=== PATIENT | male | born 1975 | race African-American/Black ===

== ENCOUNTER 2017-02-15 07:48 | Day surgery (SDC) | payer OTHER ==
[2017-02-15] VITALS (7 sets, daily range): BP systolic 124–139; BP diastolic 84–94; PULSE 56–82; RESP 10–18
[~2017-02-15] VITALS: Ht 182.9 cm; Wt 101.4 kg
[~2017-02-15 07:48] MED LIST: CEFAZOLIN 1 GM INJ ONE; GLYCOPYRROLATE 0.4 MG INJ ONE; LIDOCAINE 2% (SDV) 5 ML INJ ONE; NEOSTIGMINE 3 MG/3 ML SYRINGE ONE; ROCURONIUM 50 MG INJ ONE
[2017-02-15] MEDS ORDERED: BUPR300T36 PO (08:31)
[2017-02-15] MEDS ORDERED: CHOL100062 PO (08:31)
--- NOTE | 2017-02-15 10:10 | HPN ---
Date/Time of Note Date/Time of Note DATE: 02/15/17 TIME: 10:10 Interval H&P Admission Note Pt. seen H&P reviewed: No system changes GERARDO DUMONT MD Feb 15, 2017 10:10
[2017-02-15] MEDS ORDERED: MIDAZOLAM 1 MG/ML 2 ML INJ ONE (10:27)
[2017-02-15] MEDS ORDERED: ROPIVACAINE 0.5 % 30 ML VIAL ONE ×2 (10:29→13:25)
[2017-02-15] MEDS ORDERED: OXYCODONE/ACETAMINOPHEN (5/325) TAB PO PRN ×3 (10:30→14:00)
[2017-02-15] MEDS ORDERED: morphine 2 MG INJ IV PRN (10:30)
[2017-02-15] MEDS ORDERED: DEXAMETHASONE 4 MG/ML 1 ML INJ ONE (11:28)
[2017-02-15] MEDS ORDERED: PROPOFOL 40 ML ONE (11:28)
[2017-02-15] MEDS ORDERED: LABETALOL HCL 20MG INJ ONE (11:29)
[2017-02-15] MEDS ORDERED: POLYMYXIN/BACITRACIN 1L IRRIG ONE (11:38)
[2017-02-15] MEDS ORDERED: NEOMYC/POLYMYX/BACIT 3.5GM OPH OINT ONE (13:29)
[2017-02-15] MEDS ORDERED: NEOMYC/POLYMYX/BACIT 30 GM OINT ONE (13:29)
[2017-02-15] MEDS ORDERED: ONDANSETRON 4 MG INJ ONE (13:41)
--- NOTE | 2017-02-15 13:48 | RADRPT ---
PROCEDURE: Intraoperative imaging of the right ankle with fluoroscopy. CLINICAL INDICATION: Right ankle pain. Intraoperative. TECHNIQUE: 18 images of the right ankle were obtained in the operating room with an image intensif ier. No radiologist was in attendance. Fluoroscopy time is 70 seconds. COMPARISON: No prior study is available for comparison. FINDINGS: Surgical instruments are noted overlying the right ankle. Images demonstrate placement of a lateral plate and multiple screws transfixing the distal fibula. T here are 2 fixation devices are also noted transfixing the distal tibia to distal fibula. IMPRESSION: 1. Intraoperative imaging of the right ankle. RPTAT: QQ .Kevin Segovia MD, MD Date Time Electronically viewed and signed by .Kevin Segovia MD, on 02/15/2017 13:48 .R/
--- NOTE | 2017-02-15 13:59 | OPR ---
Date/Time of Note Date/Time of Note DATE: 02/15/17 TIME: 13:59 Operative Report Procedure Date: Feb 15, 2017 Preoperative Diagnosis Right ankle distal fibular fracture, posterior malleolus fracture and syndesmotic disruption. Postoperative Diagnosis Right ankle distal fibular and posterior malleolus fracture and syndesmotic disruption. Right ankle medial talar dome osteochondral lesion measuring 2 x 2 mm. Right ankle joint loose body measuring ~1 cm. Operation Performed Right ankle arthroscopy with loose body removal Right ankle arthroscopy with extensive debridement Right ankle open reduction internal fixation of lateral malleolus ankle fracture in the setting of a bimalleolar ankle fracture which included the posterior malleolus Right ankle open reduction internal fixation of syndesmosis Surgeon Nilesh Dumont MD patient services assistant: WOOD HERRERA Anesthesia Type: general, other (Popliteal regional block with local saphenous block) Anesthesiologist: LUZ LOTT Tourniquet Time: 75 min at 250 mm Hg Estimated Blood Loss: 10 - 50 ml's Transfusion Required: no Specimen: none Grafts/Implants 1 Arthrex distal fibular locking plate with one titanium Arthrex tight rope Complications: no Pt Condition Post Procedure: stable Disposition: PACU Indications Patient is a 42-year-old male who sustained a right ankle lateral and posterior malleolar ankle fracture with syndesmotic disruption after an ankle fracture dislocation approximately 3 weeks ago. Given the amount of disruption and injury in this placement to the ankle fracture and its fragments patient was indicated for surgical fixation. Operative\Procedure Findings Risk Note: Patient was explained the risks and benefits of surgery and the patient's [place] language including not limited to infection, bleeding, injury to blood vessels, nerves, ligaments or tendons. Risks of anesthesia, deep vein thrombosis and need for reduce future surgery. Patient acknowledged these risk by signing the surgical consent form. Procedure Description The patient was met in the preoperative holding area, marked with the correct operative extremity confirmed with both patient and consent. The patient was then brought back in the operative theater, placed supine on operative table, given preoperative antibiotics and preoperative regional block anesthesia. The patient was then placed in the arthroscopic thigh zendejas with all bony prominences well padded with a nonsterile tourniquet placed on the operative extremity. The patient was then prepped and draped in the normal sterile fashion. All parties in the room did a timeout and everyone agreed it was the correct patient, and extremity and procedure. The superficial peroneal nerve had been marked out prior to distraction, followed by initial distraction was placed across the joint and and using extreme caution to avoid any injury to the neurovascular structures, the anteromedial, anterolateral, and posterolateral portals were created in the standard fashion. The arthroscope was brought into the ankle and a 21-point exam was performed showing extensive hemorrhagic scar tissue and synovitis in the ankle with extensive scar tissue in both the medial, lateral, posterior and anterior gutters. Also noted was a 1.05 cm of loose body that was found in the posterior lateral aspect of the ankle, which was removed during the case. The syndesmosis was extensively debrided. Also noted was the deep deltoid which was partially ruptured and visible in the medial gutter. After thorough debridement of the anterior medial, lateral, posterior and anterior gutters. There was a posterior malleolar fracture with articular disruption seen and the fracture at this point was reduced with a probe and a displaced articular fracture fragments was reduced and the comminution removed under arthroscopic visualization. Approximately 2 x 2 millimeter osteochondral lesion of the anterior medial talar dome with bare bone was noted during exam however it was off the bearing portion of the articular surface after this was done, the ankle was irrigated thoroughly with normal saline and the arthroscopes were removed. At this point, the thigh zendejas was removed and the patient was well padded under both extremities and patient was then reprepped and draped, and all gloves and instruments were changed. Attention was then turned initially to the distal fibular fracture. An incision was made over the the fibula. The incision was taken down to the fibula with care taken to avoid injury to the neurovascular structures. The fracture was identified and reduced and fixated with a interfragmentary lag screw followed by a distal fibular plate and fibula was reduced and x-rayed to show that there was fibular length and alignment and rotation had been re- achieved. Once this was shown, the wound was irrigated thoroughly. A manual external rotation stress xray was performed showing syndesmosis widening. A syndesmotic tightrope was then placed across the joint to reduce the syndesmosis. Talar tilt stress xray was performed showing no eversion stress opening medially showing that it was likely only deep but not superficial deltoid rupture A saphenous nerve block was then done with 20 cc of 0.5% ropivacaine All wounds were thoroughly irrigated and closed with initially 2-0 Vicryl, followed by 3-0 Monocryl followed by 3-0 nylon in a vertical mattress fashion. All wounds were dressed with Xeroform, antibiotic ointment, 4 x 4s, 5 ABDs were placed and the patient was placed in a well-padded short leg splint. Tourniquet had been brought down prior to this and hemostasis had been achieved prior to the wound closure. The wounds were irrigated thoroughly prior to closure as well. All sponge and needle counts were correct. NILESH DUMONT MD Feb 15, 2017 13:59
--- NOTE | 2017-02-15 13:59 | SIPON ---
Date/Time of Note Date/Time of Note DATE: 02/15/17 TIME: 13:57 Operative Report Preoperative Diagnosis Right ankle distal fibular fracture and syndesmotic disruption. Postoperative Diagnosis Right ankle distal fibular fracture and syndesmotic disruption. Right ankle medial talar dome osteochondral lesion measuring 2 x 2 mm. A loose body measuring 1 cm. Operation/Procedure Performed Right ankle arthroscopy with loose body removal Right ankle arthroscopy with extensive debridement Right ankle open reduction internal fixation of lateral malleolus ankle fracture Right ankle open reduction internal fixation of syndesmosis Surgeon Nilesh Dumont MD news assistant TOMASZ Yan Anesthesia: general, other (Popliteal regional block with local saphenous block ) Estimated blood loss: 10 - 50 ml's Transfusion Required none Specimen None Grafts/Implants 1 Arthrex distal fibular locking plate with one titanium Arthrex tight rope Complications none NILESH DUMONT MD Feb 15, 2017 13:59
[2017-02-15] MEDS ORDERED: LABETALOL HCL 20MG INJ IV PRN (14:00)
[2017-02-15] MEDS ORDERED: ONDANSETRON 4 MG INJ IV PRN (14:00)
[2017-02-15] MEDS ORDERED: HYDROmorphONE (0.2 MG/ML) 10ML SYG IV PRN ×3 (14:00)
[2017-02-15] MEDS ORDERED: hydrALAzine 20 MG INJ IV PRN (14:00)
[2017-02-15] MEDS ORDERED: MEPERIDINE 25 MG INJ IV PRN (14:00)
[2017-02-15] MEDS ORDERED: KETOROLAC 30 MG INJ IV PRN (14:00)
[2017-02-15] MEDS ORDERED: DIPHENHYDRAMINE 50 MG INJ IV PRN (14:00)
[2017-02-15] MEDS ORDERED: FENTAnyl 50 MCG/ML VIAL IV PRN ×3 (14:00)
== END 2017-02-15 16:10 | disposition home or self-care (01) ==
LOC: SDS 07:48
PROVIDERS: ATTEND Orthopaedic Surgery
DX: S82.61XA Displaced fracture of lateral malleolus of right fibula, initial encounter for closed fracture (principal); M93.271 Osteochondritis dissecans, right ankle and joints of right foot; X58.XXXA Exposure to other specified factors, initial encounter; Y92.89 Other specified places as the place of occurrence of the external cause; M24.071 Loose body in right ankle; F17.200 Nicotine dependence, unspecified, uncomplicated; E66.9 Obesity, unspecified; Z68.30 Body mass index [BMI] 30.0-30.9, adult
CPT/HCPCS: 27792; 29894; 73610; J0690; J1100; J1170; J2250; J2405; J2710; J2795; J3010; Z7512; Z7610

== ENCOUNTER 2017-02-25 13:05 | Emergency (ER) | payer OTHER ==
[~2017-02-25] VITALS: Ht 182.9 cm; Wt 101.5 kg
[~2017-02-25 13:05] MED LIST changes: +BUPR300T36 PO; -CEFAZOLIN 1 GM INJ ONE; +CHOL100062 PO; -GLYCOPYRROLATE 0.4 MG INJ ONE; -LIDOCAINE 2% (SDV) 5 ML INJ ONE; -NEOSTIGMINE 3 MG/3 ML SYRINGE ONE; -ROCURONIUM 50 MG INJ ONE
[2017-02-25 13:08] VITALS: Ht 182.9 cm; Wt 101.5 kg
--- NOTE | 2017-02-25 13:37 | ERD ---
ER Documentation Chief Complaint Date/Time DATE: 02/25/17 TIME: 13:30 Chief Complaint R. leg pain x yesterday post r. leg surgery x 1 week ago HPI 42-year-old male who presents emergency department for right calf pain. Was sent here by his orthosis surgeon, Dr. Nilesh Scott, who was requesting doppler- study/venous lab. Headache, dizziness, blurred vision, neck pain, throat pain, difficulty swallowing, shoulder pain, chest pain, shortness of breath, difficulty breathing when lying flat, coughing, abdominal pain, nausea, vomiting, constipation, diarrhea, urinary symptoms, fever, chills. No known drug allergies. No past medical history. Surgery: Maleolar surgery. Social: Not working at this time. Smokes vape cigarettes. His alcoholic beverages. Denies use of illegal drugs. ROS All systems reviewed and are negative except as per history of present illness. Medications Home Meds Reported Medications Cholecalciferol* (Vitamin D3*) 1,000 Unit Tablet, 1000 UNIT PO DAILY, TAB 02/15/17 Bupropion Hcl* (Bupropion XL*) 300 Mg Tab.sr.24h, 300 MG PO DAILY, TAB.SA 02/15/17 Allergies Allergies: Coded Allergies: No Known Allergy (Unverified , 02/25/17) PMhx/Soc History of Surgery: Yes (r LEG ) Anesthesia Reaction: No Hx Neurological Disorder: No Hx Respiratory Disorders: No Hx Cardiac Disorders: No Hx Psychiatric Problems: No Hx Miscellaneous Medical Probl: No Hx Alcohol Use: Yes (SOCIALY) Hx Substance Use: No Hx Tobacco Use: No Physical Exam Vitals Vital Signs Date Time Temp Pulse Resp B/P Pulse Ox O2 Delivery O2 Flow Rate FiO2 02/25/17 13:08 98.2 87 18 140/91 98 Physical Exam Const: [] Head: Atraumatic Eyes: Normal Conjunctiva ENT: Normal External Ears, Nose and Mouth. Neck: Full range of motion..~ No meningismus. Resp: Clear to auscultation bilaterally Cardio: Regular rate and rhythm, no murmurs Abd: Soft, non tender, non distended. Normal bowel sounds Skin: No petechiae or rashes Back: No midline or flank tenderness Ext: No cyanosis, or edema. Right lower extremity has a posterior splint. Unwrapped. No discoloration to calf area. Mild tenderness to palpation to calf area. Circulation and sensation is intact to right toes. Circulation and sensation is intact to right lower extremity. Bilateral hips are stable and unremarkable. Left lower extremities unremarkable. No neurovascular deficits. Neur: Awake and alert. No neurological deficits. Psych: Normal Mood and Affect Procedures/MDM 42-year-old male who presents emergency department for right calf pain. Was sent here by his orthosis surgeon, Dr. Nilesh Scott, who was requesting doppler- study/venous lab. Headache, dizziness, blurred vision, neck pain, throat pain, difficulty swallowing, shoulder pain, chest pain, shortness of breath, difficulty breathing when lying flat, coughing, abdominal pain, nausea, vomiting, constipation, diarrhea, urinary symptoms, fever, chills. No known drug allergies. No past medical history. Surgery: Maleolar surgery. Social: Not working at this time. Smokes vape cigarettes. His alcoholic beverages. Denies use of illegal drugs. Physical exam: Right lower extremity has a posterior splint. Unwrapped. No discoloration to calf area. Mild tenderness to palpation to calf area. Circulation and sensation is intact to right lower extremity. Bilateral hips are stable and unremarkable. Left lower extremities unremarkable. No neurovascular deficits. Case was discussed with supervising physician, Dr. Hmoero Alas who agreed with my medical decision making to order ultrasound. Venous Doppler ultrasound of the right lower extremity: No evidence of deep vein thrombosis involving the right lower extremity. Called Dr. Nilesh Scott at and informed him for the lower extremity ultrasound. He said to have the patient come back to his office. Reevaluation: Denies headache, dizziness, blurry vision, neck pain, shoulder pain, chest pain, difficulty breathing, shortness of breath, abdominal pain, nausea, vomiting, numbness or tingling sensation. Lung sounds are clear to auscultation. Right calf is no discoloration. Right toe has circulation and sensation. Right knee is unremarkable. Left lower extremities unremarkable. No neurovascular deficits. No neurological deficits. Differential diagnosis: Deep vein thrombosis versus leg pain Final diagnosis: Leg pain. I explained to the patient the result of the lower extremity ultrasound. I also explained to him the plan of care and that he needs to go to Dr. Nilesh Scott as soon as he gets discharged here. He verbalized understanding and agreed with the plan of care. Follow-up with Dr. Nilesh Scott Follow-up with PCP in 24-48 hours. Come back here in the department for any new symptoms or any worsening of symptoms. All questions and concerns were answered. Patient verbalized understanding and agreed with plan of care. Hemodynamically stable on discharge. Departure Diagnosis: Primary Impression: Pain of right leg Condition: Stable Additional Instructions: Follow-up with Dr. Nilesh Scott Follow-up with PCP in 24-48 hours. Come back here in the department for any new symptoms or any worsening of symptoms. All questions and concerns were answered. Patient verbalized understanding and agreed with plan of care. ERIC PUENTE Feb 25, 2017 13:36
--- NOTE | 2017-02-25 14:54 | RADRPT ---
PROCEDURE: US right lower extremity veins. CLINICAL INDICATION: Right leg pain and swelling. TECHNIQUE: Multiple longitudinal and transverse images of the right lower extremity veins were obt ained with arambula scale and color Doppler imaging. The common femoral vein, femoral vein, and poplitea l vein were evaluated. 2D grayscale measurements with compression sonography, pulsed Doppler, color Doppler, and pulsed Doppler with augmentation. COMPARISON: No prior studies are available for comparison. FINDINGS: The right common femoral, femoral and popliteal veins are normally compressible throughout. Color f low demonstrates normal filling of the vessels. Normal waveforms are visualized and there is normal response to augmentation. IMPRESSION: 1. No evidence of deep vein thrombosis involving the right lower extremity. RPTAT: QQ .Kevin Segovia MD, MD Date Time Electronically viewed and signed by .Kevin Segovia MD, on 02/25/2017 14:53 .R/
== END 2017-02-25 15:37 | disposition home or self-care (01) ==
LOC: FTE 13:05
DX: M79.604 Pain in right leg (principal)
CPT/HCPCS: 93971; Z7502